=== PATIENT | female | born 1990 | race Caucasian/White ===

== ENCOUNTER 2017-01-11 19:22 | Emergency (ER) | payer BC ==
[~2017-01-11] VITALS: Ht 154.9 cm; Wt 47.6 kg
[2017-01-11 19:27] VITALS: BP 135/80; PULSE 94; RESP 16; TEMP 98.5; O2SAT 99
--- NOTE | 2017-01-11 20:20 | NUR ---
Natalya Plummer [employer] in triage to examine pt, discuss plan of care, and complete MSE.
[2017-01-11 20:53] LABS: BILIRUBIN,URINE NEGATIVE (NEGATIVE); BLOOD, URINE NEGATIVE (NEGATIVE); CLARITY/URINE CLEAR (CLEAR); COLOR,URINE YELLOW (YELLOW); GLUCOSE,URINE NEGATIVE (NEGATIVE); KETONES,URINE NEGATIVE (NEGATIVE); LEUKOCYTE ESTERASE ,URINE NEGATIVE (NEGATIVE); NITRITE, URINE NEGATIVE (NEGATIVE); PROTEIN URINE NEGATIVE (NEGATIVE); UROBILINOGEN,URINE 0.2 (0.2-1.0)
--- NOTE | 2017-01-11 21:05 | NUR ---
Pt ambulatory to bed 7 accompanied by mother. Report given to CHINA Murray.
--- NOTE | 2017-01-11 21:15 | NUR ---
Pt c/o 08/01 migraine on R side that started earlier to day and has gotten progressively worse. Pt states she was watching tv, eating when pain began. Pt also c/o nausea and sensitivity to light. No acute distress noted. Respirations even and unlabored. Will continue to monitor.
[2017-01-11] MEDS ORDERED: DIPHENHYDRAMINE INJ 50 MG/ML VIAL IVP ONE (21:30)
[2017-01-11] MEDS ORDERED: chlorproMAZINE HCL 50 MG/ 2 ML AMP IV ONE (21:30)
--- NOTE | 2017-01-11 21:30 | NUR ---
Pt requesting to hold medications (thorazine and benadryl) administration until CT is completed. Will continue to monitor
--- NOTE | 2017-01-11 21:34 | NUR ---
Pt taken to CT.
[2017-01-11] MEDS ORDERED: RIZATRIPTAN BENZOATE 10 MG PO ONE (22:15)
[2017-01-11] MEDS ORDERED: DIPHENHYDRAMINE INJ 50 MG/ML VIAL IM ONE (22:30)
[2017-01-11] MEDS ORDERED: chlorproMAZINE HCL 50 MG/ 2 ML AMP IM ONE (22:30)
[2017-01-11 22:40] VITALS: BP 126/76; PULSE 88; RESP 18; TEMP 98.5; O2SAT 99
--- NOTE | 2017-01-11 22:40 | NUR ---
Patient given written and verbal discharge instructions and verbalizes understanding. ER MD discussed with patient the results and treatment provided. Patient in stable condition. ID arm band removed. Rx of Maxalt given. Patient educated on pain management and to follow up with PMD. Pain Scale 7/10. Opportunity for questions provided and answered.
== END 2017-01-11 22:40 | disposition home or self-care (01) ==
LOC: SED 19:22
DX: G43.909 Migraine, unspecified, not intractable, without status migrainosus (principal); R51 Headache; Z98.890 Other specified postprocedural states
CPT/HCPCS: 70450; 81003; 81025; 96372; 99285; J1200; J3230